=== PATIENT | female | born 1985 | race Caucasian/White ===

== ENCOUNTER 2022-05-07 00:19 | Emergency (ER) | payer OTHER ==
[~2022-05-07] VITALS: Ht 177.8 cm; Wt 105.9 kg
[2022-05-07 01:51] LABS: BASO % 0.4 % (0.0-1.0); EOS % 0.1 % (0.0-3.0); HEMATOCRIT 34.2 % (36.0-47.0); LYMPH # 1.4 10^3/uL (1.5-5.0); LYMPH % 14.2 % (24.0-44.0); MEAN CORPUSCULAR HEMOGLOBIN 25.6 pg (27.0-33.0); MEAN CORPUSCULAR HGB CONC 32.2 g/dl (32.0-36.5); MEAN CORPUSCULAR VOLUME 79.7 fl (80.0-96.0); MONO # 0.6 10^3/uL (0.0-0.8); NEUTROPHILS # 7.9 10^3/uL (1.5-8.5); NEUTROPHILS % 78.8 % (36.0-66.0); PLATELET COUNT, AUTOMATED 290 10^3/uL (150-450); RED BLOOD COUNT 4.29 10^6/uL (4.00-5.40)
[2022-05-07 02:25] LABS: LIPASE 28 U/L (12-53)
[2022-05-07] MEDS ORDERED: ONDANSETRON 4MG 2ML VIAL IV ONE (03:00)
[2022-05-07] MEDS ORDERED: MORPHINE 4 MG/ML 1ML VIAL IV PRN (03:00)
[2022-05-07] MEDS ORDERED: ISOVUE-370 76% 100ML VIAL As Ordered ONE (03:05)
[2022-05-07 03:29] LABS: ALBUMIN 4.1 G/DL (3.2-5.2); ALKALINE PHOSPHATASE 54 U/L (46-116); ALT/SGPT 28 U/L (7.0-40); AST/SGOT 28 U/L (<34); BILIRUBIN,DIRECT 0.2 MG/DL (<0.4); BILIRUBIN,TOTAL 0.6 MG/DL (0.3-1.2); BLOOD UREA NITROGEN 9 MG/DL (9-23); CALCIUM LEVEL 9.4 MG/DL (8.5-10.1); CARBON DIOXIDE LEVEL 24 MMOL/L (20-31); CHLORIDE LEVEL 104 MMOL/L (98-107); CREATININE FOR GFR 0.77 MG/DL (0.55-1.30); GLOMERULAR FILTRATION RATE > 60.0 (>60); GLUCOSE, FASTING 111 MG/DL (60-100); POTASSIUM SERUM 3.6 MMOL/L (3.5-5.1); SODIUM LEVEL 139 MMOL/L (136-145); TOTAL PROTEIN 7.5 G/DL (5.7-8.2)
[2022-05-07 03:30] VITALS: BP 146/64
[2022-05-07 03:51] LABS: HCG, SERUM QUALITATIVE NEGATIVE (NEGATIVE)
[2022-05-07] MEDS ORDERED: HALOPERIDOL 5MG/ML 1ML VIAL IV ONE (06:20)
[2022-05-07] MEDS ORDERED: HALO5TAB33 PO (08:38)
[2022-05-07] MEDS ORDERED: CAPS0.022 TOP (08:38)
[2022-05-08] MEDS ORDERED: OMEP-173 PO (14:15)
[2022-05-08] MEDS ORDERED: FAMO10TA50 PO (14:15)
== END 2022-05-07 09:24 | disposition home or self-care (01) ==
LOC: M ED 00:19
DX: R10.9 Unspecified abdominal pain (principal); K21.9 Gastro-esophageal reflux disease without esophagitis; F12.10 Cannabis abuse, uncomplicated; Z79.1 Long term (current) use of non-steroidal anti-inflammatories (NSAID); Z79.83 Long term (current) use of bisphosphonates
CPT/HCPCS: 74174; 80048; 80076; 81000; 81015; 83605; 83690; 84703; 85025; 96374; 96375; 99284; J1630; J2270; J2405

== ENCOUNTER 2022-05-08 14:03 | Emergency (ER) | payer OTHER ==
[~2022-05-08] VITALS: Ht 177.8 cm; Wt 113.6 kg
[~2022-05-08 14:03] MED LIST: CAPS0.022 TOP; HALO5TAB33 PO
[2022-05-08 14:08] VITALS: BP 136/71
[2022-05-08] MEDS ORDERED: FAMO10TA50 PO (14:15)
[2022-05-08] MEDS ORDERED: OMEP-173 PO (14:15)
[2022-05-08 15:55] LABS: BASO % 0.3 % (0.0-1.0); EOS % 0.1 % (0.0-3.0); HEMATOCRIT 35.2 % (36.0-47.0); HEMOGLOBIN 11.4 g/dl (12.0-15.5); LYMPH # 1.4 10^3/uL (1.5-5.0); LYMPH % 13.3 % (24.0-44.0); MEAN CORPUSCULAR HEMOGLOBIN 25.7 pg (27.0-33.0); MEAN CORPUSCULAR HGB CONC 32.4 g/dl (32.0-36.5); MEAN CORPUSCULAR VOLUME 79.3 fl (80.0-96.0); MONO # 0.6 10^3/uL (0.0-0.8); MONO % 5.5 % (2.0-8.0); NEUTROPHILS # 8.3 10^3/uL (1.5-8.5); NEUTROPHILS % 80.4 % (36.0-66.0); PLATELET COUNT, AUTOMATED 274 10^3/uL (150-450); RED BLOOD COUNT 4.44 10^6/uL (4.00-5.40); WHITE BLOOD COUNT 10.3 10^3/uL (4.0-10.0)
[2022-05-08] MEDS ORDERED: HALOPERIDOL 5MG/ML 1ML VIAL IV STA (16:19)
[2022-05-08] MEDS ORDERED: NS 1,000 ML IV ONE (16:20)
[2022-05-08 16:25] LABS: ALBUMIN 4.1 G/DL (3.2-5.2); ALKALINE PHOSPHATASE 51 U/L (46-116); ALT/SGPT 35 U/L (7.0-40); AST/SGOT 57 U/L (<34); BILIRUBIN,TOTAL 0.6 MG/DL (0.3-1.2); BLOOD UREA NITROGEN 10 MG/DL (9-23); CALCIUM LEVEL 9.1 MG/DL (8.5-10.1); CARBON DIOXIDE LEVEL 25 MMOL/L (20-31); CHLORIDE LEVEL 103 MMOL/L (98-107); CREATININE FOR GFR 0.77 MG/DL (0.55-1.30); GLOMERULAR FILTRATION RATE > 60.0 (>60); GLUCOSE, FASTING 102 MG/DL (60-100); LIPASE 33 U/L (12-53); POTASSIUM SERUM 4.1 MMOL/L (3.5-5.1); SODIUM LEVEL 139 MMOL/L (136-145); TOTAL PROTEIN 7.4 G/DL (5.7-8.2)
== END 2022-05-08 18:40 | disposition home or self-care (01) ==
LOC: M ED 14:03
DX: F12.188 Cannabis abuse with other cannabis-induced disorder (principal); K21.9 Gastro-esophageal reflux disease without esophagitis; Z79.899 Other long term (current) drug therapy; Z79.83 Long term (current) use of bisphosphonates
CPT/HCPCS: 80053; 83690; 85025; 96361; 96374; 99283; J1630

== ENCOUNTER → 2022-06-15 | Outpatient (REF) | payer OTHER ==
[~2022-06-15] MED LIST changes: +FAMO10TA50 PO; +OMEP-173 PO
[2022-06-15 16:56] LABS: HEMOGLOBIN A1c 4.9 % (4.0-6.0)
[2022-06-15 17:22] LABS: THYROID STIMULATING HORMONE 1.327 uIU/ML (0.55-4.78)
[2022-06-15 17:23] LABS: CHOLESTEROL LEVEL 163 MG/DL (<200); CHOLESTEROL RISK RATIO 3.59 (<5); HDL CHOLESTEROL 45.3 MG/DL (>40); LDL CHOLESTEROL 91.7 MG/DL (<100); NON-HDL-C 117.7 MG/DL; TRIGLYCERIDES LEVEL 130 MG/DL (<150)
[2022-06-15 17:24] LABS: TOTAL 25(OH) VITAMIN D 17.7 NG/ML (20.0-100.0)
[2022-06-15 17:48] LABS: HIV 1&2 SCREEN CENTAUR NEGATIVE (NEGATIVE)
[2022-06-15 17:56] LABS: HEPATITIS C VIRUS ABY INDEX 0.1 INDEX (<0.8)
== END ==
LOC: M LAB REF 16:11
PROVIDERS: ATTEND Nurse Practitioner Family
DX: E55.9 Vitamin D deficiency, unspecified (principal); F41.8 Other specified anxiety disorders; Z68.34 Body mass index [BMI] 34.0-34.9, adult; Z11.9 Encounter for screening for infectious and parasitic diseases, unspecified

== ENCOUNTER → 2024-12-05 | Outpatient (REF) | payer OTHER ==
[2024-12-05 14:54] LABS: C REACTIVE PROTEIN QUANTITATIV 2.09 MG/DL (<1.0)
[2024-12-05 14:55] LABS: ALT/SGPT 30 U/L (7.0-40); AST/SGOT 22 U/L (<34); CALCIUM LEVEL 9.7 MG/DL (8.5-10.1); CARBON DIOXIDE LEVEL 28 MMOL/L (20-31); CHLORIDE LEVEL 103 MMOL/L (98-107); CHOLESTEROL LEVEL 174 MG/DL (<200); CHOLESTEROL RISK RATIO 4.18 (<5); CREATININE FOR GFR 0.70 MG/DL (0.55-1.30); GLOMERULAR FILTRATION RATE > 90.0 (>60); LDL CHOLESTEROL 84.2 MG/DL (<100); NON-HDL-C 132.4 MG/DL; POTASSIUM SERUM 4.7 MMOL/L (3.5-5.1); SODIUM LEVEL 142 MMOL/L (136-145); TRIGLYCERIDES LEVEL 241 MG/DL (<150)
[2024-12-05 15:06] LABS: ESTIMATED AVERAGE GLUCOSE 105.0 MG/DL (60-110)
== END ==
LOC: M LAB REF 14:07
PROVIDERS: ATTEND Nurse Practitioner Family
DX: E66.813 Obesity, class 3 (principal); M25.562 Pain in left knee; G89.29 Other chronic pain; F10.90 Alcohol use, unspecified, uncomplicated

== ENCOUNTER → 2024-12-05 | Outpatient (CLI) | payer OTHER | LOC: M RAD 17:03 | PROVIDERS: ATTEND Nurse Practitioner Family | DX: M25.561 Pain in right knee (principal); M25.562 Pain in left knee; E66.813 Obesity, class 3; G89.29 Other chronic pain; F10.90 Alcohol use, unspecified, uncomplicated ==